=== PATIENT | female | born 1995 | race African-American/Black ===

== ENCOUNTER 2020-07-10 11:30 | Emergency (ER) | payer OTHER ==
[2020-07-10 11:47] VITALS: BP 112/66; PULSE 106; TEMP 98; BMI 21.0
[2020-07-10 13:07] LABS: BASO % 0.7 % (0-2.0); EOS % 1.1 % (0-4.5); HEMATOCRIT 37.9 % (32.4-45.2); HEMOGLOBIN 12.9 GM/dL (10.7-15.3); LYMPH % 25.9 % (8-40); MCH 25.9 pg (25.7-33.7); MCHC 34.2 g/dl (32.0-36.0); MEAN CELL VOLUME 75.8 fl (80-96); MEAN PLT VOLUME 7.6 fl (7.5-11.1); MONO % 7.1 % (3.8-10.2); NEUT % 65.2 % (42.8-82.8); PLATELET COUNT 287 K/MM3 (134-434); RBC 4.99 M/mm3 (3.60-5.2); RDW 18.3 % (11.6-15.6); WHITE BLOOD COUNT 5.3 K/mm3 (4.0-10.0)
[2020-07-10 13:15] LABS: INR 1.13 (0.83-1.09); PROTHROMBIN TIME (PATIENT) 13.9 SEC (9.7-13.0)
[2020-07-10 13:30] LABS: POTASSIUM 4.3 mmol/L (3.5-5.1)
[2020-07-10 13:32] LABS: CALCIUM 9.5 mg/dL (8.5-10.1)
[2020-07-10 13:33] LABS: ALBUMIN 4.1 g/dl (3.4-5.0); BLOOD UREA NITROGEN 9.3 mg/dL (7-18)
[2020-07-10 13:36] LABS: CREATININE 0.7 mg/dL (0.55-1.3)
[2020-07-10 13:37] LABS: BILIRUBIN,TOTAL 1.2 mg/dL (0.2-1); TOT PROT 8.4 g/dl (6.4-8.2)
== END 2020-07-10 18:14 | disposition home or self-care (01) ==
LOC: JER 11:30
DX: R20.9 Unspecified disturbances of skin sensation (principal)
CPT/HCPCS: 36415; 70450-TC; 71046-TC-FY; 80053; 85025; 85610; 99284-25

== ENCOUNTER 2020-08-17 04:48 | Day surgery (SDC) | payer OTHER ==
[2020-08-17 11:55] VITALS: PULSE 81
[2020-08-17] MEDS ORDERED: FERRIC CARBOXYMALTOSE 750 MG in SODIUM CHLORIDE 250 ML IVPB ONE (12:00)
[2020-08-17 12:54] VITALS: BP 123/58; TEMP 98.4
== END 2020-08-17 13:25 | disposition home or self-care (01) ==
LOC: JINFUSION 04:48
PROVIDERS: ATTEND Psychiatry & Neurology Psychiatry
PROC: 3E033GC Introduction of Other Therapeutic Substance into Peripheral Vein, Percutaneous Approach (ICD-10-PCS; principal; 2020-08-17)
DX: D50.9 Iron deficiency anemia, unspecified (principal)
CPT/HCPCS: 81025; 96365; J1439

== ENCOUNTER 2020-08-24 04:34 | Day surgery (SDC) | payer OTHER ==
[2020-08-24] MEDS ORDERED: FERRIC CARBOXYMALTOSE 750 MG in SODIUM CHLORIDE 250 ML IVPB ONE (10:00)
[2020-08-24 11:44] VITALS: BP 106/53; PULSE 88; TEMP 98.1
== END 2020-08-24 10:55 | disposition home or self-care (01) ==
LOC: JINFUSION 04:34
PROVIDERS: ATTEND Psychiatry & Neurology Psychiatry
PROC: 3E033GC Introduction of Other Therapeutic Substance into Peripheral Vein, Percutaneous Approach (ICD-10-PCS; principal; 2020-08-24)
DX: D50.9 Iron deficiency anemia, unspecified (principal)
CPT/HCPCS: 81025; 96365; J1439

== ENCOUNTER 2021-07-12 09:37 | Emergency (ER) | payer OTHER ==
[2021-07-12 09:45] VITALS: BP 101/71; PULSE 97; TEMP 98; BMI 21.0
[2021-07-12] MEDS ORDERED: FAMOTIDINE 20 MG TABLET PO ONE (10:03)
[2021-07-12] MEDS ORDERED: diphenhydrAMINE HCL 25 MG CAPSULE (FP) PO ONE ×2 (10:03→10:13)
[2021-07-12] MEDS ORDERED: FAMOTIDINE 20 MG TABLET ONE (10:13)
== END 2021-07-12 11:04 | disposition home or self-care (01) ==
LOC: JERFT 09:37
DX: R21 Rash and other nonspecific skin eruption (principal)
CPT/HCPCS: 99283-25

== ENCOUNTER 2023-04-27 12:28 | Inpatient (IN) | payer OTHER ==
[2023-04-27] MEDS: ELECTROLYTE-148 SOLN 1,000 ML IV SCH ×2 (13:00→15:30)
[2023-04-27] MEDS ORDERED: PROMETHAZINE HCL 25 MG/1 ML VIAL IVPB ONE (14:30)
[2023-04-27] MEDS ORDERED: BUTORPHANOL TARTRATE 1 MG/ML VIAL IVPB PRN (14:30)
[2023-04-27 15:04] LABS: BASO % 0.4 % (0-2.0); EOS % 0.1 % (0-4.5); HEMATOCRIT 38.8 % (32.4-45.2); HEMOGLOBIN 13.5 GM/dL (10.7-15.3); LYMPH % 13.4 % (8-40); MCH 29.9 pg (25.7-33.7); MCHC 34.8 g/dl (32.0-36.0); MEAN CELL VOLUME 85.9 fl (80-96); MEAN PLT VOLUME 7.8 fl (7.5-11.1); MONO % 7.4 % (3.8-10.2); NEUT % 78.7 % (42.8-82.8); PLATELET COUNT 269 10^3/uL (134-434); RBC 4.52 M/mm3 (3.60-5.2); RDW 13.9 % (11.6-15.6); WHITE BLOOD COUNT 10.5 K/mm3 (4.0-10.0)
[2023-04-27 15:10] LABS: INR 0.98 (0.83-1.09); PROTHROMBIN TIME (PATIENT) 11.4 SEC (9.7-13.0)
[2023-04-27 15:19] LABS: POTASSIUM 3.7 mmol/L (3.5-5.1)
[2023-04-27 15:21] LABS: BLOOD UREA NITROGEN 4.7 mg/dL (7-18); CALCIUM 8.6 mg/dL (8.5-10.1)
[2023-04-27] MEDS ORDERED: FENTANYL/BUPIVACAINE/NS/PF - PCEA - 50 ML DISP.SYRIN EP ONE ×2 (15:24→20:29)
[2023-04-27] MEDS ORDERED: NALOXONE HCL 0.4 MG/ML VIAL IVPUSH PRN (15:24)
[2023-04-27 15:25] LABS: CREATININE 0.5 mg/dL (0.55-1.3)
[2023-04-27] MEDS ORDERED: FENTANYL CITRATE/PF 50 MCG/ML VIAL ONE (15:30)
[2023-04-27] MEDS ORDERED: FENTANYL/BUPIVACAINE/NS/PF - PCEA - 50 ML DISP.SYRIN EP SCH (15:30)
[2023-04-27] MEDS ORDERED: AMPICILLIN SODIUM 2 GM VIAL ONE (16:36)
[2023-04-27] MEDS ORDERED: AMPICILLIN - 2 GM in SODIUM CHLORIDE 100 ML IVPB ONE (16:40)
[2023-04-27 16:48] VITALS: BMI 27.4
[2023-04-27] MEDS ORDERED: OXYTOCIN 30 UNITS in 0.9% NS 30 UNIT/500 ML INFUS.BAG IVPB SCH (20:00)
[2023-04-27] MEDS ORDERED: AMPICILLIN SODIUM 1 GM VIAL ONE (20:15)
[2023-04-27] MEDS ORDERED: AMPICILLIN - 1 GM in SODIUM CHLORIDE 100 ML IVPB SCH (20:45)
[2023-04-27] MEDS ORDERED: OXYTOCIN 20 UNITS in 0.9% NS 20 UNIT/1,000 ML INFUS.BAG IV ONE (21:13)
[2023-04-27] MEDS ORDERED: LIDOCAINE HCL 1% PRESERVATIVE FREE - 30ML VIAL ONE (21:13)
[2023-04-27] MEDS ORDERED: BENZOCAINE 28 GM HEMORRHOIDAL OINTMENT TP PRN (22:19)
[2023-04-27] MEDS ORDERED: METHYLERGONOVINE MALEATE 0.2 MG/1 ML AMP IM PRN (22:19)
[2023-04-27] MEDS ORDERED: ACETAMINOPHEN 325 MG TABLET (FP) PO PRN (22:19)
[2023-04-27] MEDS ORDERED: BENZOCAINE 20% 57 GM BOTTLE TP PRN (22:19)
[2023-04-27] MEDS ORDERED: WITCH HAZEL 50% (TUCKS) 40 PAD/JAR PAD TP PRN (22:19)
[2023-04-27] MEDS ORDERED: BISACODYL 10 MG SUPP.RECT RC PRN (22:19)
[2023-04-27] MEDS ORDERED: oxyCODONE HCL 5 MG TABLET PO PRN (22:19)
[2023-04-27] MEDS ORDERED: OXYTOCIN 20 UNITS in 0.9% NS 20 UNIT/1,000 ML INFUS.BAG IV SCH (22:30)
[2023-04-27 22:38] LABS: CORD BASE EXCESS -7.6 mmol/L (0-2); CORD HCO3 19.1 mmHg (20-29); CORD PCO2 42.7 mmHg (30-78); CORD pH 7.268 (7.14-7.44)
[2023-04-27 22:46] LABS: CORD HCO3 21.9 mmHg (20-29); CORD PCO2 67.9 mmHg (30-78); CORD pH 7.127 (7.14-7.44)
[2023-04-27] MEDS: IBUPROFEN 600 MG TABLET (FP) PO PRN (23:15)
[2023-04-27] MEDS ORDERED: IBUPROFEN 600 MG TABLET (FP) PO ONE (23:15)
[2023-04-28 08:00] LABS: BASO % 0.4 % (0-2.0); EOS % 0.1 % (0-4.5); HEMATOCRIT 29.3 % (32.4-45.2); HEMOGLOBIN 10.5 GM/dL (10.7-15.3); LYMPH % 10.7 % (8-40); MCH 30.4 pg (25.7-33.7); MCHC 35.6 g/dl (32.0-36.0); MEAN CELL VOLUME 85.3 fl (80-96); MEAN PLT VOLUME 7.8 fl (7.5-11.1); NEUT % 79.8 % (42.8-82.8); PLATELET COUNT 241 10^3/uL (134-434); RBC 3.44 M/mm3 (3.60-5.2); RDW 13.8 % (11.6-15.6); WHITE BLOOD COUNT 13.1 K/mm3 (4.0-10.0)
[2023-04-28] MEDS: IBUPROFEN 600 MG TABLET (FP) PO PRN ×2 (08:33→13:45)
[2023-04-28] MEDS: FERROUS SO4 325 MG TABLET (FP) PO SCH ×3 (08:33→17:32)
[2023-04-28] MEDS: PRENATAL VITAMINS W/ FOLIC ACID TABLET (FP) PO SCH (09:25)
[2023-04-28 20:54] VITALS: TEMP 97.7
[2023-04-28] MEDS ORDERED: SENNOSIDES/DOCUSATE COMBO (SENNA PLUS) TABLET (UD) PO PRN (22:00)
[2023-04-29] MEDS: IBUPROFEN 600 MG TABLET (FP) PO PRN (00:17)
[2023-04-29] MEDS: PRENATAL VITAMINS W/ FOLIC ACID TABLET (FP) PO SCH (09:29)
[2023-04-29] MEDS: FERROUS SO4 325 MG TABLET (FP) PO SCH ×2 (09:29→12:31)
[2023-04-29 10:35] VITALS: BP 107/70; PULSE 93; RESP 18
== END 2023-04-29 14:05 | disposition home or self-care (01) | DRG 807 ==
LOC: JDEL 12:28 → JLDR 14:30 → J3W 04-28 01:11
PROVIDERS: ADMIT Obstetrics & Gynecology; ATTEND Obstetrics & Gynecology
PROC: 0HQ9XZZ Repair Perineum Skin, External Approach (ICD-10-PCS; principal; 2023-04-27)
PROC: 10E0XZZ Delivery of Products of Conception, External Approach (ICD-10-PCS; 2023-04-27)
DX: O70.0 First degree perineal laceration during delivery (principal); Z37.0 Single live birth; Z3A.40 40 weeks gestation of pregnancy
CPT/HCPCS: 36415; 36600; 80048; 82803; 85025; 85610; 85730; 86780; 86850; 86900; 86901; 87340

== ENCOUNTER 2024-09-07 11:04 | Emergency (ER) | payer BC, OTHER ==
[2024-09-07 11:10] VITALS: BP 122/62; PULSE 94; RESP 20; TEMP 98.3; BMI 21.0
[2024-09-07] MEDS ORDERED: ACETAMINOPHEN 500 MG TABLET (FP) ONE (12:03)
[2024-09-07] MEDS: ACETAMINOPHEN 500 MG TABLET (FP) PO ONE (12:05)
== END 2024-09-07 14:18 | disposition home or self-care (01) ==
LOC: JERFT 11:04
DX: J32.2 Chronic ethmoidal sinusitis (principal); R51.9 Headache, unspecified; H57.12 Ocular pain, left eye; H93.12 Tinnitus, left ear
CPT/HCPCS: 70450-TC; 84703; 99284-25